=== PATIENT | male | born 1975 | race Caucasian/White ===

== ENCOUNTER 2017-03-29 18:40 | Emergency (ER) | payer SELFPAY ==
[~2017-03-29] VITALS: Ht 157.5 cm; Wt 91.0 kg
[2017-03-29] MEDS ORDERED: KETOROLAC 15MG/ML VIAL IM ONE (23:15)
[2017-03-29 23:32] VITALS: BP 155/90
== END 2017-03-29 23:35 | disposition home or self-care (01) ==
LOC: ER 18:40
DX: S90.31XA Contusion of right foot, initial encounter (principal); S70.12XA Contusion of left thigh, initial encounter; M79.89 Other specified soft tissue disorders; W19.XXXA Unspecified fall, initial encounter; Y93.89 Activity, other specified; Y92.89 Other specified places as the place of occurrence of the external cause; Y99.8 Other external cause status
CPT/HCPCS: 73502; 73552; 73630; 96372; 99284; J1885; Z7610